=== PATIENT | female | born 1990 | race Two or more races ===

== ENCOUNTER → 2019-12-28 | Outpatient (CLI) | payer OTHER | END | disposition home or self-care (01) | LOC: EMPHLTH 11:00 | DX: Z02.1 Encounter for pre-employment examination (principal) ==

== ENCOUNTER → 2020-07-23 | Outpatient (CLI) | payer OTHER ==
[2020-07-23 12:38] LABS: COVID AG,FIA SOURCE NASOPHARYNGEAL
== END | disposition home or self-care (01) ==
LOC: EMS 11:54
DX: Z20.828 Contact with and (suspected) exposure to other viral communicable diseases (principal)
CPT/HCPCS: 87426; U0003